=== PATIENT | male | born 1940 | race Caucasian/White ===

== ENCOUNTER 2016-07-08 19:41 | Emergency (ER) | payer MEDICARE ==
--- NOTE | 2016-07-08 19:52 | EDM.PDOC ---
ED HPI GENERAL MEDICAL PROBLEM - General Chief Complaint: Bite:Animal, Insect Stated Complaint: DOG BITE Time Seen by Provider: 07/08/16 19:41 Source of Information: Reports: Patient, Family History Limitations: Reports: No Limitations - History of Present Illness INITIAL COMMENTS - FREE TEXT/NARRATIVE: 75 y.o.w.m came to the ed with is SO shortly after his own doc bit him while he was attempting to separate his to dogs from a dog fight. His dog was UTD with all shots. Pts SBP was mildly elevated to 167. Onset: Today Onset Date: 07/08/16 Onset Time: 18:00 Duration: Hour(s): Location: Reports: Upper Extremity, Right Quality: Reports: Burning Severity: Moderate Improves with: Reports: Immobilization, Medication Worsens with: Reports: Movement Context: Reports: Trauma Associated Symptoms: Reports: No Other Symptoms Right Hand Pain Score (Numeric/FACES): 5 - Related Data Allergies Allergy/AdvReac Type Severity Reaction Status Date / Time No Known Allergies Allergy Verified 07/08/16 20:00 Home Meds: Home Meds Cephalexin [Keflex] 500 mg PO Q6HR #40 cap 07/08/16 [Rx] Review of Systems - Review of Systems Review Of Systems: See Below Constitutional: Reports: No Symptoms Eyes: Reports: No Symptoms, Other Ears: Reports: No Symptoms Nose: Reports: No Symptoms Mouth/Throat: Reports: No Symptoms Respiratory: Reports: No Symptoms Cardiovascular: Reports: No Symptoms GI/Abdominal: Reports: No Symptoms Genitourinary: Reports: No Symptoms Musculoskeletal: Reports: No Symptoms Skin: Reports: Wound (r post hand) Neurological: Reports: No Symptoms Psychiatric: Reports: No Symptoms ED EXAM, GENERAL - Physical Exam Exam: See Below Exam Limited By: No Limitations General Appearance: Alert, WD/WN, No Apparent Distress, Obese Eye Exam: Bilateral Eye: Normal Inspection Ears: Normal External Exam Ear Exam: Bilateral Ear: Auricle Normal Nose: Normal Inspection, Normal Mucosa Throat/Mouth: Normal Inspection, Other (poor dentition) Head: Atraumatic, Normocephalic Neck: Normal Inspection, Supple, Non-Tender, Full Range of Motion Respiratory/Chest: No Respiratory Distress, Lungs Clear, Normal Breath Sounds, No Accessory Muscle Use Cardiovascular: Normal Peripheral Pulses, Regular Rate, Rhythm, No Edema Peripheral Pulses: 1+: Femoral (L), Femoral (R) GI/Abdominal: Normal Bowel Sounds, Soft, Non-Tender, No Organomegaly (Male) Exam: Deferred Rectal (Males) Exam: Deferred Back Exam: Normal Inspection, Full Range of Motion Extremities: Normal Inspection, Other (LAC r post hand) Neurological: Alert, Oriented, CN II-XII Intact, Normal Cognition Psychiatric: Normal Affect, Normal Mood Skin Exam: Warm, Dry, Normal Color, Wound/Incision Lymphatic: No Adenopathy ED TRAUMA EXTREMITY PROCEDURES - Laceration/Wound Repair Right Posterior Hand Lac/wound length in cm: 4 Appearance: Superficial, Clean Distal NVT: Neuro & Vascular Intact, No Tendon Injury Anesthetic Type: Local Local Anesthesia - Lidocaine (Xylocaine): 1% Plain Local Anesthetic Volume: 5cc Skin Prep: Providone-Iodine (Betadine) Saline irrigation (cc's): 20 Exploration/Debridement/Repair: Wound Explored, in a Bloodless Field, Explored to Base Closed with: Sutures Suture Size: 4-0 # of Sutures: 10 Suture Type: Other (ethilon) Sterile Dressing Applied: Nurse Tetanus Status Addressed: Yes Complications: No Progress/Comments: skin was intensively irrigated and loosely attached - Joint Reduction Pre-procedure NV status: Normal Post-procedure NV status: Normal Course - Vital Signs Text/Narrative:: 75 y.o.w.m came to the ed with is SO shortly after his own doc bit him while he was attempting to separate his to dogs from a dog fight. His dog was UTD with all shots. Pts SBP was mildly elevated to 167. PE: LAC r post hand Procedure: Please see note above. Impression: LAC r hand, dog bite Tx: Wound repair, Abx Reexam: Improved Plan: D/C with Instructions. Pt was advised to recheck BP in next 3 days. Last Recorded V/S: Last Vital Signs Temp 36.6 C 07/08/16 21:11 Pulse 86 07/08/16 21:11 Resp 16 07/08/16 21:11 BP 164/99 H 07/08/16 21:11 Pulse Ox 99 07/08/16 21:11 - Orders/Labs/Meds Meds: Medications Discontinued Medications Generic Name Dose Route Start Last Admin Trade Name Freq PRN Reason Stop Dose Admin Ceftriaxone Sodium 1,000 mg 07/08/16 20:42 07/08/16 21:10 Rocephin IM 07/08/16 20:43 1,000 mg ONETIME ONE Administration Departure - Departure Time of Disposition: 20:46 Disposition: Home, Self-Care 01 Condition: good Clinical Impression: Laceration Dog bite of right hand Qualifiers: Encounter type: initial encounter Qualified Code(s): S61.451A - Open bite of right hand, initial encounter - Discharge Information Prescriptions: Cephalexin [Keflex] 500 mg PO Q6HR #40 cap Referrals: Jose Colon MD [Primary Care Provider] - Forms: ED Department Discharge Additional Instructions: rest, ice and elevation, motrin for pain, wound check in 2 days, suture removal in 10-14 days, keflex as recommended, please come back to the ed if your symptoms get worse acutely.
[2016-07-08] MEDS ORDERED: Lidocaine 1% 20 ML MDV INFILT ONE (20:00)
[2016-07-08] MEDS ORDERED: cefTRIAXone 1,000 MG VIAL IM ONE (20:42)
[2016-07-08 21:13] VITALS: BP 164/99
== END 2016-07-08 21:11 | disposition home or self-care (01) ==
LOC: FB.ED 19:41
DX: S61.411A Laceration without foreign body of right hand, initial encounter (principal); W54.0XXA Bitten by dog, initial encounter
CPT/HCPCS: 12002; 96372; 99283; A4217; J0696

== ENCOUNTER → 2018-12-24 | Outpatient (CLI) | payer MEDICARE, OTHER ==
[~2018-12-24] MED LIST: Iopamidol 755 Mg/ML 100 ML Bottle IV ONE
== END ==
LOC: FB.DI 10:51
PROVIDERS: ATTEND Family Medicine
DX: R09.02 Hypoxemia (principal); R06.02 Shortness of breath; J98.4 Other disorders of lung; M40.204 Unspecified kyphosis, thoracic region; R91.1 Solitary pulmonary nodule; M48.54XD Collapsed vertebra, not elsewhere classified, thoracic region, subsequent encounter for fracture with routine healing
CPT/HCPCS: 71260; Q9967